=== PATIENT | male | born 1945 | race Caucasian/White ===

== ENCOUNTER → 2018-01-27 13:31 | Outpatient (CLI) | payer MEDICARE, OTHER, SELFPAY ==
--- NOTE | 2018-01-27 13:38 | CI_ITS ---
Cerebrovascular Exam Indications: 780.2 Syncope and collapse. IMPRESSIONS 1. The bilateral vertebral arteries are patent with normal antegrade flow. 2. Study suggests less than 20% stenosis involving the right internal carotid artery and the left internal carotid artery. Carotid duplex study. Complete study and Doppler flow study including spectral analysis, color and winslow scale imaging. Height: Height: 193cm. Height: 76in. Weight: Weight: 113.4kg. Weight: 249.5lb. Body mass index: BMI: 30.4kg/m^2. Body surface area: BSA: 2.49m^2. Location: Vascular laboratory. Patient status: Outpatient. Tables: Arterial flow: + +--------+--------+ Location V sys V ed + +--------+--------+ Right CCA - proximal 59.7cm/s 14.1cm/s + +--------+--------+ Right CCA - distal 58.1cm/s 14.9cm/s + +--------+--------+ Right ECA 66.8cm/s -------- + +--------+--------+ Right ICA - proximal 54.2cm/s 22cm/s + +--------+--------+ Right ICA - mid 68.4cm/s 25.1cm/s + +--------+--------+ Right ICA - distal 86.4cm/s 30.6cm/s + +--------+--------+ Right vertebral 32.2cm/s -------- + +--------+--------+ Left CCA - proximal 60.5cm/s 16.5cm/s + +--------+--------+ Left CCA - distal 62.9cm/s 21.2cm/s + +--------+--------+ Left ECA 91.9cm/s -------- + +--------+--------+ Left ICA - proximal 54.2cm/s 24.4cm/s + +--------+--------+ Left ICA - mid 86.2cm/s 39.7cm/s + +--------+--------+ Left ICA - distal 97.4cm/s 35.4cm/s + +--------+--------+ Left vertebral 37.7cm/s -------- + +--------+--------+ Velocity ratios: + + + + + + Right, V sys Right, V ed Left, V sys Left, V ed + + + + + + Max ICA/dist CCA 1.49 2.05 1.55 1.87 + + + + + + (Report amended ) Electronically signed by: Vasquez Moore [id number]
--- NOTE | 2018-01-27 13:38 | CA_ITS ---
PROCEDURE: 2-D M-mode and color Doppler study INDICATIONS FOR THE TEST: Chest pain COPD Heart Murmur Tobacco Smoking Palpitations Fatigue SyncopeX Edema Hypertension Diabetes Mellitus Rheumatic Fever SOB MCINTYRE Obesity Hyperlipidemia Family History HD Additional History PATIENT INFORMATION HEIGHT: 76 WEIGHT:250 GENDER: Male B/P:129/82 2-D/M-MODE INTERPRETATION: 2-D MEASUREMENTS OBSERVED VALUES IN CMS Right Ventricular Dimension (RVDd) 1.7 Interventricular Septum (Thickness)(IVsd) 1.1 Left Ventricular Internal Dimensions(LVIDd) 5.1 Left Ventricular Posterior Wall (Thickness)(LVPWd) 1.0 Aortic Root 4.1 Aortic Cusp Separation 2.5 Left Atrial Dimensions (LAD) 2.9 2D 1. Left atrium is mildly enlarged, left ventricle is normal size, visually estimated ejection fraction of 55% with no obvious regional wall motion abnormality. 2. The right atrium and right ventricle are normal size and contractility. 3. The aortic root is enlarged measuring 4.1 cm, aortic valve is minimally thickened and fibrosed. 4. The mitral and tricuspid valve are grossly normal. 5. The pulmonic valve is poorly visualized. 6. No significant pericardial effusion noted. DOPPLER INTERROGATION: Doppler interrogation of the aortic, mitral and tricuspid valvular presence of mild mitral , aortic and tricuspid regurgitation, tricuspid and jet velocity insufficient for calculation of the right ventricular systolic pressure, grade 1 diastolic dysfunction seen with tissue Doppler evidence of raised left atrial pressure. CONCLUSION: 1. Mildly enlarged left atrium, normal left ventricular size, visually estimated ejection fraction 55% with no obvious regional wall motion abnormality, grade 1 diastolic dysfunction seen with tissue Doppler evidence of raised left atrial pressure. 2. Mildly enlarged aortic root, there is no aortic stenosis, there is mild aortic insufficiency. 3. Mild mitral and tricuspid regurgitation. 4. No significant pericardial effusion noted.
== END ==
PROVIDERS: Family Provider Family Medicine; PCP Family Medicine; Visit Provider Family Medicine
DX: R55 Syncope and collapse (principal)
CPT/HCPCS: 93306; 93880

== ENCOUNTER → 2018-02-06 15:09 | Outpatient (CLI) | payer MEDICARE, OTHER, SELFPAY | PROVIDERS: PCP Family Medicine; Visit Provider Family Medicine | DX: R00.2 Palpitations (principal); R55 Syncope and collapse | CPT/HCPCS: 93270 ==

== ENCOUNTER → 2018-03-28 09:05 | Outpatient (CLI) | payer MEDICARE, OTHER, SELFPAY | PROVIDERS: Family Provider Family Medicine; PCP Family Medicine; Visit Provider Family Medicine | DX: R07.9 Chest pain, unspecified (principal) | CPT/HCPCS: 93017 ==

== ENCOUNTER → 2018-04-14 06:13 | Outpatient (CLI) | payer MEDICARE, OTHER, SELFPAY ==
--- NOTE | 2018-04-14 06:23 | NM_ITS ---
History and Indications: Syncope, abnormal EKG Procedure: Patient exercised on Fredy protocol 8 minutes and 30 seconds, resting heart rate was 49 beats per resting blood pressure 151/91, with exercise maximum heart rate achieved was 136 bpm which is greater than 85% of the maximum predicted heart rate and a blood pressure was 195/84. Test was started due to shortness of breath patient denied any complained of chest pain. Patient has good exercise capacity achieved 10.1mets of workload on treadmill, the blood pressure response to exercise was adequate. Electrocardiogram: Resting electrocardiogram showed sinus bradycardia, with exercise [address] segment depression noted from the baseline EKG. The EKG portion of the exercise Myoview is positive for ischemia. Cardiac stress and resting SPECT images: Cardiac stress and rest SPECT images were obtained using technetium 99 Myoview 32.0 mCi at stress 10.8 mCi at rest. Gated SPECT further analysis of segmental wall motion and calculation of the ejection fraction also done. Cardiac stress and rest SPECT images show a mild fixed defect in the inferior wall with normal contractility gated SPECT is likely secondary to soft tissue attenuation, no reversible ischemia seen, computer derived ejection fraction is extremely percent with no obvious regional wall motion abnormality, right ventricle is normal size and contractility. Conclusion: 1. The EKG portion of the exercise Myoview is positive for ischemia, patient has a good exercise capacity achieved 10.1mets of workload on treadmill, the blood pressure response to exercise was adequate, there was no exercise-induced chest discomfort. 2. No obvious scintigraphic evidence of reversible ischemia seen, computer derived ejection fraction is 60% with no obvious regional wall motion abnormality, right ventricle is normal size and contractility.
--- NOTE | 2018-04-14 07:17 | HMH.ITSHM ---
METONIDAZOLE MICRONAZOLE DOXYCYCLINE MULTIVITAMIN BETA SITOSLEROL CAP ASA DIPHENHYDRAMINE ASCORBIC ACID CHOLECACIFEROLIRIT ALLOPURINOL ALLERGY RELIEF
== END ==
PROVIDERS: Family Provider Family Medicine; PCP Family Medicine; Visit Provider Family Medicine
DX: R94.39 Abnormal result of other cardiovascular function study (principal); R07.9 Chest pain, unspecified
CPT/HCPCS: 78452; 93017; A9502

== ENCOUNTER 2020-10-03 12:23 | Emergency (ER) | payer MEDICARE, OTHER, SELFPAY ==
[2020-10-03 12:30] VITALS: BP 128/79; PULSE 71; RESP 18; TEMP 37.2; O2SAT 99; BMI 26.6
--- NOTE | 2020-10-03 13:11 | HMH.EDUTC ---
[facility] [place] Impression: Encounter for laboratory testing for COVID-19 virus Disposition: Home, Self-Care Condition on Discharge: Good Instructions: DI for COVID-19 (Suspected or Confirmed ), COVID-19 Viral Test, COVID-19: Testing and Tracing, Preventing the Spread of Coronavirus Discharge Instructions Additional Instructions: You were tested for today for COVID19 your test result should be back in the next 24-48 hours, you may call to the [facility] to see if your test results are back in the next 48 hours [phone] [facility] hours are 9am-9pm You was given a handout with instructions for Self Quarantine and Self isolation for while you wait on test results and what to do if they are positive If you are positive the Health Dept will be contacting you also Referrals: John Jensen MD [Primary Care Provider] - As needed Forms: Work/School Release Time of Disposition: 13:11 Medical Decision Making - Jd Inquiry Pt receiving controlled substance: No Jd was queried for this patient: No Vital Signs: 10/03/20 12:30 Temperature 98.9 F Temperature Source Oral Pulse Rate [Right Brachial] 71 Respiratory Rate 18 Blood Pressure [Right Arm] 128/79 Blood Pressure Mean [Right Arm] 95 Blood Pressure Source [Right Arm] Automatic Cuff Blood Pressure Position [Right Arm] Sitting 02 Sat by Pulse Oximetry 99 Oxygen Delivery Method Room Air Orders (Tests/Meds): ORDERS Category Date Time Status Covid-19 Nasal PCR Sendout P&C Routine Lab 10/03/20 12:30 Received Covid-19 Nasal PCR Sendout P&[facility] Stat Lab 10/03/20 12:28 [place] [facility] [place] - General Stated complaint: covid re test Time Seen by Provider: 10/03/20 13:11 Mode of Arrival: Ambulatory Source of Information: Patient Limitations: No Limitations Description of Symptoms (Recalled from Triage Doc. by RN): PATIENT REQUESTING COVID TEST D/T EXPOSURE 1 WEEK AGO; DENIES SYMPTOMS HEENT Symptoms (Recalled from RN notes): No Resp Symptoms (Recalled from RN notes): No Skin Symptoms (Recalled from RN notes): No MS Symptoms (Recalled from RN notes): No Functional Status (Recalled from RN notes): WNL - History of Present Illness Provider Complaint: Patient state that he was recently around someone that tested positive for COVID States that they was tested in [place] and was told he was negative and then they called him back the next day and told him that he was positive States that he has not been having any symptoms and wanted to get retested - Related Data Allergies Allergy/AdvReac Type Severity Reaction Status Date / Time No Known Allergies Allergy Verified 10/03/20 12:53 - Worker's Comp Is this a Worker's Comp case?: No H History - Hepatitis A Screen Drug use history?: No High risk sexual behaviors?: No History of sexually transmitted infection?: No Currently employed?: No Childcare worker?: No Do you have indoor plumbing?: Yes Do you have electricity?: Yes Attestation statement:: This patient has been screened for Hepatitis A risk factors. I have reviewed the patient's past medical history: Yes - Social History Alcohol Intake: never Occupational Status: other ROS Obtained: Yes All systems reviewed & no additional complaints, Yes Systems reviewed as appropriate & no additional complaints - Constitutional Constitutional: Reports system reviewed and no additional complaints, except as docu, Denies body ache, Denies chills, Denies fever(s), Denies headache(s) - ENT Ears, Nose, Mouth, and Throat: Reports system reviewed and no additional complaints, except as docu, Denies nasal congestion, Denies nasal discharge, Denies sore throat - Cardiovascular Cardiovascular: Reports system reviewed and no additional complaints, except as docu - Respiratory Respiratory: Yes system reviewed and no additional complaints, except as docu Physical Exam - General General appearance: alert, in no apparent distress - Respiratory Respiratory exam: Pre
[2020-10-03 13:18] VITALS: BP 128/79; PULSE 71; RESP 18; TEMP 37.2; O2SAT 99
[2020-10-04 12:31] LABS: Covid-19 Nasal PCR Sendout P&C NEGATIVE
== END 2020-10-03 13:19 | disposition home or self-care (01) ==
PROVIDERS: Emergency Provider Nurse Practitioner; PCP Family Medicine
DX: Z20.828 Contact with and (suspected) exposure to other viral communicable diseases (principal)
CPT/HCPCS: G0463; 99201; U0004

== ENCOUNTER 2024-04-27 16:03 | Emergency (ER) | payer MEDICARE, OTHER, SELFPAY ==
[2024-04-27] VITALS (8 sets, daily range): BP systolic 100–135; BP diastolic 69–85; PULSE 59–75; RESP 7–19; TEMP 36.6–36.8; O2SAT 93–98; BMI 26.9
--- NOTE | 2024-04-27 16:04 | ECG_ITS ---
APPROVED REPORT Exam: Resting ECG HR:80 bpm ECG Measurements Heart Rate 80 AXES IN 326 P 117 QRSd 100 QRS 71 QT 369 T 62 QTc 406 Conclusion ELECTRONIC ATRIAL PACEMAKER ABNORMAL RHYTHM ECG Electronically signed by : MARYSOL JOHN, 04/27/2024 22:46:50
--- NOTE | 2024-04-27 16:15 | CT_ITS ---
PROCEDURE INFORMATION: Exam: CTA Neck With Contrast Exam date and time: 04/27/2024 5:26 PM Age: 79 years old Clinical indication: Stroke-like symptoms; Other: Possible stroke, transient R monocular vision loss TECHNIQUE: Imaging protocol: Computed tomographic angiography of the neck with contrast. Exam focused on the cervical segments of the vasculature. 3D rendering (Not supervised by radiologist): MIP and/or 3D reconstructed images were created by the technologist. Radiation optimization: All CT scans at this facility use at least one of these dose optimization techniques: automated exposure control; mA and/or kV adjustment per patient size (includes targeted exams where dose is matched to clinical indication); or iterative reconstruction. Contrast material: ISOVUE 370; Contrast volume: 100 ml; Contrast route: INTRAVENOUS (IV); COMPARISON: CT ANGIO HEAD 04/27/2024 5:26 PM FINDINGS: Right common carotid artery: No stenosis. No dissection or occlusion. Right internal carotid artery: No stenosis of the extracranial segment. No dissection or occlusion. Right external carotid artery: No occlusion or stenosis of the origin. Left common carotid artery: No stenosis. No dissection or occlusion. Left internal carotid artery: No stenosis of the extracranial segment. No dissection or occlusion. Left external carotid artery: No occlusion or stenosis of the origin. Right vertebral artery: No stenosis. No dissection or occlusion. Left vertebral artery: No stenosis. No dissection or occlusion. Soft tissues: Normal. No significant soft tissue swelling. Bones/joints: No acute fracture. IMPRESSION: No hemodynamically significant extracranial cerebrovascular stenosis or occlusion. REFERENCES: NASCET CRITERIA. The degree of stenosis in the cervical segment of the internal carotid artery is based on NASCET criteria. Normal is no stenosis. Mild is less than 50% stenosis. Moderate is 50-69% stenosis. Severe is 70% to 99% stenosis. Total occlusion is no detectable patent lumen.
--- NOTE | 2024-04-27 16:15 | CT_ITS ---
PROCEDURE INFORMATION: Exam: CTA Head With Contrast, Arteriography Exam date and time: 04/27/2024 5:26 PM Age: 79 years old Clinical indication: Other: , Transient R monocular vision loss; Additional info: Possible stroke, transient R monocular vision loss TECHNIQUE: Imaging protocol: Computed tomographic angiography of the head with contrast. Exam focused on the arteries. 3D rendering (Not supervised by radiologist): MIP and/or 3D reconstructed images were created by the technologist. Radiation optimization: All CT scans at this facility use at least one of these dose optimization techniques: automated exposure control; mA and/or kV adjustment per patient size (includes targeted exams where dose is matched to clinical indication); or iterative reconstruction. Contrast material: ISOVUE 370; Contrast volume: 100 ml; Contrast route: INTRAVENOUS (IV); COMPARISON: CT HEAD/BRAIN WO CON 04/27/2024 5:24 PM FINDINGS: ANTERIOR CIRCULATION: Right internal carotid artery: Intracranial segment is patent with no significant stenosis. No aneurysm. Right middle cerebral artery: No occlusion or significant stenosis. No aneurysm. Right anterior cerebral artery: No occlusion or significant stenosis. No aneurysm. Left internal carotid artery: Intracranial segment is patent with no significant stenosis. No aneurysm. Left middle cerebral artery: No occlusion or significant stenosis. No aneurysm. Left anterior cerebral artery: No occlusion or significant stenosis. No aneurysm. POSTERIOR CIRCULATION: Right vertebral artery: No occlusion or significant stenosis. No aneurysm. Left vertebral artery: No occlusion or significant stenosis. No aneurysm. Basilar artery: No occlusion or significant stenosis. No aneurysm. Right posterior cerebral artery: No occlusion or significant stenosis. No aneurysm. Left posterior cerebral artery: No occlusion or significant stenosis. No aneurysm. Brain: No definite mass, mass effect, or midline shift. Cerebral ventricles: No ventriculomegaly. Bones/joints: Left sphenoid acute sinusitis. Soft tissues: Unremarkable. IMPRESSION: 1. Left sphenoid acute sinusitis. 2. No acute large vessel intracranial occlusion.
--- NOTE | 2024-04-27 16:15 | CT_ITS ---
PROCEDURE INFORMATION: Exam: CT Head Without Contrast Exam date and time: 04/27/2024 5:24 PM Age: 79 years old Clinical indication: Visual disturbance; Additional info: Possible stroke, transient R monocular vision loss TECHNIQUE: Imaging protocol: Computed tomography of the head without contrast. Radiation optimization: All CT scans at this facility use at least one of these dose optimization techniques: automated exposure control; mA and/or kV adjustment per patient size (includes targeted exams where dose is matched to clinical indication); or iterative reconstruction. COMPARISON: No relevant prior studies available. FINDINGS: Brain: Periventricular and subcortical small vessel ischemic changes appear chronic. Mild atrophy associated. No acute hemorrhage, mass effect, midline shift, or extra-axial fluid collection. Cerebral ventricles: No ventriculomegaly. Paranasal sinuses: Visualized sinuses are unremarkable. No fluid levels. Mastoid air cells: Visualized mastoid air cells are well aerated. Bones: Unremarkable. No acute fracture. Soft tissues: Unremarkable. IMPRESSION: No acute intracranial abnormality.
--- NOTE | 2024-04-27 16:17 | ED_ITS ---
Discharge Plan Disposition Patient Disposition: Home, Self-Care Chief Complaint: Eye Problems Referrals Follow up/Referrals: Provider,Referral, MD [Primary Care Provider] - See instructions Activity Restrictions/Add. Instructions Additional Instructions/Restrictions: At this time it was felt you are safe to be discharged home. If new or worsening symptoms please do not hesitate to return the emergency department. Please follow-up with the [facility] within the next 24 to 48 hours, it is very important that they continue to optimize your medical therapy on an outpatient basis to prevent a large stroke from happening. Clinical Impressions Clinical Impression: Transient ischemic attack Discharge ED Provider: Zander Arce General Adult HPI General Chief complaint: Eye Problems Stated complaint: Weakness Time Seen by Provider: 04/27/24 16:08 History of Present Illness HPI narrative: Patient is a 79-year-old male with past medical history of chronic vision changes with glasses correction, hypertension, hyperlipidemia on appropriate medical therapy, pacemaker placement on daily aspirin who presents emergency department as a transfer from optometry for vision loss. On Saturday patient had transient right-sided monocular total vision loss for approximately 30 minutes which recovered to baseline. He presented to his packing room inspector today for his yearly checkup who did an exam and on a sheet of paper circled transit monocular vision loss, no written concern for CRAO or retinal detachment. He has no focal neurologic deficits, no speech difficulties and he presents here for continued evaluation. He has no acute complaints at this time Related Data Allergies Allergy/AdvReac Type Severity Reaction Status Date / Time No Known Allergies Allergy Verified 10/03/20 12:53 [facility] Disclaimer: The information contained in this section may have been updated after the patient was seen, as this information can be updated by other users. Social History Smoking Status: Never smoker alcohol intake: never current occupational status: other Travel in the last 8 weeks: None ROS Obtained: Yes Systems reviewed as appropriate & no additional complaints except as documented Physical Exam General General appearance: alert and in no apparent distress Head Head exam: atraumatic and normocephalic Eye Eye exam: Present PERRL and EOMI ENT ENT exam: Present mucous membranes moist Neck Neck exam: Present normal inspection Chest Chest inspection: Present normal inspection and symmetric chest wall rise Respiratory Respiratory exam: Present normal lung sounds bilaterally; Absent respiratory distress Cardiovascular Cardiovascular exam: Present regular rate and normal rhythm Abdominal Exam Abdominal exam: Present soft; Absent tenderness Extremities Exam Extremities exam: Present normal inspection Neurological Exam Neurological exam: Present alert, oriented X3 and CN II-XII intact; Absent motor sensory deficit Psychiatric Psychiatric exam: Present normal affect Skin Skin exam: Present warm and dry Medical Decision Making Jd Inquiry Pt receiving controlled substance: No Vital Signs: 04/27/24 16:04 04/27/24 16:17 04/27/24 16:30 Temperature 97.9 F Temperature Source Oral Pulse Rate 65 63 Pulse Rate [Left Radial] 60 Respiratory Rate 13 7 L 19 Blood Pressure 103/78 L 100/69 L Blood Pressure [Right Arm] 103/78 L Blood Pressure Mean 86 77 Blood Pressure Mean [Right Arm] 86 02 Sat by Pulse Oximetry 95 96 93 L Oxygen Delivery Method Room Air 04/27/24 17:00 04/27/24 17:58 04/27/24 18:15 Temperature Temperature Source Pulse Rate 75 75 59 L Pulse Rate [Left Radial] Respiratory Rate 10 L 14 17 Blood Pressure 110/74 119/82 129/78 Blood Pressure [Right Arm] Blood Pressure Mean 84 Blood Pressure Mean [Right Arm] 02 Sat by Pulse Oximetry 98 97 97 Oxygen Delivery Method Room Air Room Air 04/27/24 18:30 Temperature Temperature Source Pulse Rate 60 Pulse Rate [Left Radial] Respiratory Rate 14 Blood Pressure 124/81 Blood Pressure [Right Arm] Blood Pressure Mean Blood Pressure Mean [Right Arm] 02 Sat by Pulse Oximetry 95 Oxygen Delivery Method Room Air Lab Data Lab Results 04/27/24 16:10: WBC 6.2, RBC 4.44 L, Hgb 14.3, Hct 43.3, MCV 97.4 H, MCH 32.3 H, MCHC 33.1, RDW 14.2, Plt Count 122 L, MPV 8.5, Neut % (Auto) 65.5, Lymph % (Auto) 27.5, [place] % (Auto) 4.5, Eos % (Auto) 2.0, Baso % (Auto) 0.6, Neut # (Auto) 4.1, Lymph # (Auto) 1.7, [place] # (Auto) 0.3, Eos # (Auto) 0.1, Baso # (Auto) 0.0, PT 10.9, INR 0.97, APTT 26.0, Sodium 142, Potassium 3.7, Chloride 110 H, Carbon Dioxide 28, Anion Gap 7.7, BUN 22 H, Creatinine 1.20, Estimated GFR 59, Est GFR ( Amer) 71, Glucose 141 H, Calcium 9.0, Total Bilirubin 0.6, AST 38, ALT 41, Alkaline Phosphatase 86, Troponin I < 0.01, Total Protein 6.6, Albumin 3.9, Globulin 2.7, Albumin/Globulin Ratio 1.4, Triglycerides 230 H, Cholesterol 96 L, LDL Cholesterol Direct 38.32 L, VLDL Cholesterol 46 H, HDL Cholesterol 32 L, Cholesterol/HDL Ratio 3.0 04/27/24 16:10 04/27/24 16:10 Orders (Tests/Meds): ED MEDICATIONS Generic Name Dose Route Start Last Admin Trade Name Freq PRN Reason Stop Dose Admin Sodium Chloride 10 ml 04/27/24 16:15 Sodium Chloride 0.9% 10ml Flush Syringe IV 05/27/24 16:14 NEEDED PRN Maintain IV Site Sodium Chloride 10 ml 04/27/24 17:25 04/27/24 17:26 Sodium Chloride 0.9% 10ml Syr (Rad Only) IV 05/27/24 17:24 10 ml NEEDED PRN Administration Maintain IV Site Discontinued Medications Generic Name Dose Route Start Last Admin Trade Name Freq PRN Reason Stop Dose Admin Amoxicillin/Clavulanate Potassium 1 each 04/27/24 18:46 04/27/24 19:03 Amoxicillin/Clavulanate Potassium 875/125mg Tablet PO 04/27/24 18:47 1 each ONCE ONE Administration Iopamidol 100 ml 04/27/24 17:25 04/27/24 17:26 Iopamidol-370 (76%);100ml Bottle IV 04/27/24 17:26 100 ml ONCE ONE Administration Iopamidol 75 ml 04/27/24 17:32 04/27/24 17:32 Iopamidol-370 (76%);100ml Bottle IV 04/27/24 17:33 75 ml ONCE ONE Administration Sodium Chloride 50 ml 04/27/24 17:25 04/27/24 17:26 0.9 % Sodium Chloride 50 Ml Vial IV 04/27/24 17:26 50 ml ONCE ONE Administration Sodium Chloride 50 ml 04/27/24 17:32 04/27/24 17:32 0.9 % Sodium Chloride 50 Ml Vial IV 04/27/24 17:33 50 ml ONCE ONE Administration ORDERS Category Date Time Status CT angio head Stat Cat Scan 04/27/24 16:[address] angio neck Stat Cat Scan 04/27/24 16:[address] head/brain wo con Stat Cat Scan 04/27/24 16:15 Completed Activated Partial Thrombo Time Stat Lab 04/27/24 16:10 Completed Complete Blood Count Auto Diff Stat Lab 04/27/24 16:10 Completed Comprehensive Metabolic Panel Stat Lab 04/27/24 16:10 Completed Drug Screen,Urine Stat Lab 04/27/24 17:58 Received Lipid Panel Stat Lab 04/27/24 16:10 Completed Prothrombin Time INR Stat Lab 04/27/24 16:10 Completed Troponin I Q3H Lab 04/27/24 19:15 Ordered Troponin I Q3H Lab 04/27/24 22:15 Ordered Troponin I Stat Lab 04/27/24 16:10 Completed Urinalysis and Microscopic Stat Lab 04/27/24 17:58 Received ECG Request Stat Y 04/27/24 16:15 Ordered ECG Data Tracing #1: Independently interpreted by me rate is 80, rhythm is a paced, QTc 406, no ST elevation in anatomical contiguous leads, appropriate electrical capture. Medical Decision Narrative: In summary patient is a 79-year-old male with past medical history described above who presents emergency department for evaluation of transient monocular vision loss. Patient is hemodynamically stable nontoxic-appearing arrival, afebrile. Patient has a nonfocal neurologic exam. Given no ongoing vision loss my concern for retinal detachment and CRAO is low especially since he has been evaluated by an packing room inspector today and they had no concern for this in their note. Differential includes TIA, among others. Workup will be conducted with hematologic labs, CTA head and neck, noncontrasted CT scan of the head, EKG. workup reviewed by me, hematologic labs are nonactionable, no ROSALVA or critical electrolyte abnormality, initial troponin slightly low, LDL was 38 and patient is already on statin therapy. CTA head left sphenoid sinusitis which will be given a dose of Augmentin right now as noncontrasted CT scan is pending and CT of the neck is pending. Noncontrasted CT scan of the head shows no acute intracranial abnormality and does not. CTA of the neck shows no critical occlusion. Shared decision-making discussion was had at bedside, it was recommended that patient be admitted for TIA workup however he is on aspirin, antihypertensives which are well-controlled, statin therapy and [facility] he wishes to pursue outpatient management at this time. It was felt that this is reasonable. Patient was given multiple return precautions and [facility]. Given that he has a nonfocal neurologic exam, no ongoing headache, no diplopia, no ongoing vision loss my concern for venous sinus thrombosis is low and no sinusitis evidence on the noncontrasted CT scan of the head therefore prolonged treatment for sinusitis given he is otherwise asymptomatic will be deferred at this time. Patient was discharged in stable condition peer Critical Care Critical Care Time Critical Care Time: No
[2024-04-27 16:25] LABS: Basophils % 0.6 % (0.1-2.0); Eosinophils # 0.1 K/mm3 (0.0-0.4); Hematocrit 43.3 % (42.0-52.0); Hemoglobin 14.3 g/dL (14.1-18.0); Lymphocytes # 1.7 K/mm3 (0.7-4.5); Lymphocytes % 27.5 % (10-50); Mean Corpuscular HGB Conc 33.1 g/dL (31.8-35.4); Mean Corpuscular Hemoglobin 32.3 pg (27.0-31.2); Mean Corpuscular Volume 97.4 fl (80-94); Mean Platelet Volume 8.5 fl (7.4-10.4); Monocytes # 0.3 K/mm3 (0.1-1.0); Monocytes % 4.5 % (1.7-9.3); Neutrophils # 4.1 K/mm3 (1.8-7.8); Neutrophils % 65.5 % (37.0-80.0); Platelet Count 122 K/mm3 (142-424); Red Blood Count 4.44 M/mm3 (4.60-6.20); Red Cell Distribution Width 14.2 % (11.5-17.5); White Blood Count 6.2 K/mm3 (4.8-10.8)
[2024-04-27 16:28] LABS: Chloride 110 mmol/L (98-107); Potassium 3.7 mmoL/L (3.5-5.1); Sodium 142 mmol/L (136-145)
[2024-04-27 16:30] LABS: Alanine Aminotransferase 41 U/L (12-78); Alkaline Phosphatase 86 U/L (38-126); Aspartate Amino Transferase 38 U/L (17-59); Bilirubin,Total 0.6 mg/dl (0.2-1.3); Blood Urea Nitrogen 22 mg/dl (9-20); Estimated Glomerular Filt Rate 59 ml/min (>60); GFR (African American) 71 ML/MIN (>60)
[2024-04-27 16:31] LABS: Albumin Level 3.9 g/dl (3.5-5.0); Albumin/Globulin Ratio 1.4 (1.1-1.8); Anion Gap 7.7 mEq/L (5-15); Carbon Dioxide 28 mmol/L (22.0-30.0); Cholesterol 96 mg/dl (140-200); Globulin 2.7 g/dL (1.3-3.2); Glucose 141 mg/dl (74-100); HDL Cholesterol 32 mg/dl (40-60); Total Protein,Serum 6.6 g/dl (6.3-8.2); Triglycerides 230 mg/dl (30-150); VLDL Cholesterol 46 mg/dL (0-40)
[2024-04-27 16:32] LABS: INR 0.97 (0.9-1.1); Prothrombin Time 10.9 seconds (10.1-12.5)
[2024-04-27 16:42] LABS: Direct LDL Cholesterol 38.32 mg/dL (100-129)
[2024-04-27 16:53] LABS: Troponin I < 0.01 ng/ml (0.00-0.034)
[2024-04-27] MEDS: SODIUM CHLORIDE 0.9% 10ML SYR (RAD ONLY) 10 ML IV (17:26)
[2024-04-27] MEDS: IOPAMIDOL-370 (76%);100ML BOTTLE 100 ML IV (17:26)
[2024-04-27] MEDS: 0.9 % SODIUM CHLORIDE 50 ML VIAL IV ×2 (17:26→17:32)
[2024-04-27] MEDS: IOPAMIDOL-370 (76%);100ML BOTTLE 75 ML IV (17:32)
[2024-04-27 18:06] LABS: Microscopic, Urine URINE MICROSCOPIC (MICROSCOPIC)
[2024-04-27] MEDS: AMOXICILLIN/CLAVULANATE POTASSIUM 875/125MG TABLET 1 EACH PO (19:03)
[2024-04-27 20:20] LABS: Appearance,Urine CLEAR (Clear); Bilirubin,Urine Negative (Negative); Blood, Urine Negative (Negative); Color,Urine YELLOW (Yellow); Glucose,Urine (UA) Negative (Negative); Ketones,Urine Negative (Negative); Leukocyte Esterase,Urine Negative (Negative); Nitrate,Urine Negative (Negative); Protein,Urine Negative (Negative); Urobilinogen,Urine 0.2 EU/dl (0.2)
[2024-04-27 20:34] LABS: Barbiturates Screen,Urine Negative ng/ml (<200)
[2024-04-27 20:35] LABS: Amphetamine/Metha Screen,Urine Negative ng/ml (<1000); Benzodiazepines Screen,Urine Negative ng/ml (<200)
[2024-04-27 20:36] LABS: Cannabinoid Screen,Urine Negative ng/ml (<50); Cocaine Screen,Urine Negative ng/ml (<300)
[2024-04-27 20:37] LABS: Methadone Screen,Urine Negative ng/ml (<300)
[2024-04-27 20:38] LABS: Opiate Screen,Urine Negative ng/ml (<300); Phencyclidine Screen,Urine Negative ng/ml (<25)
[2024-04-27 20:39] LABS: Bacteria,Urine Trace /lpf; Squamous Epithelial Cell,Urine Occasional #/hpf (0-5); WBC,Urine Occasional #/hpf (0-3)
== END 2024-04-27 19:57 | disposition home or self-care (01) ==
PROVIDERS: Emergency Provider Emergency Medicine
DX: G45.9 Transient cerebral ischemic attack, unspecified (principal); H53.121 Transient visual loss, right eye; I10 Essential (primary) hypertension; E78.5 Hyperlipidemia, unspecified; Z95.0 Presence of cardiac pacemaker
CPT/HCPCS: 70450; 70496; 70498; 80053; 80061; 80307; 81001; 84484; 85025; 85610; 85730; 93005; 99285; Q9967